=== PATIENT | female | born 1990 | race Caucasian/White ===

== ENCOUNTER → 2017-06-28 | Outpatient (CLI) | payer MEDICAID ==
[~2017-06-28] MED LIST: PRENATAL1 TA7 PO; ZOFRAN 4MG T4 MG/TAB PO; ZOFRAN8 MG PO
[2017-06-28 16:52] LABS: INFLUENZA A POSITIVE; INFLUENZA B NEGATIVE
== END ==
LOC: COL.LAB 15:57
PROVIDERS: Registered Nurse
DX: J06.9 Acute upper respiratory infection, unspecified (principal)

== ENCOUNTER → 2020-08-12 | Outpatient (CLI) | payer OTHER | LOC: COL.RAD 13:07 | DX: B94.8 Sequelae of other specified infectious and parasitic diseases (principal); R06.00 Dyspnea, unspecified; R07.89 Other chest pain | CPT/HCPCS: Q9967 ==

== ENCOUNTER 2024-01-27 17:02 | Emergency (ER) | payer OTHER ==
[~2024-01-27] VITALS: Ht 157.5 cm; Wt 93.2 kg
[2024-01-27 17:09] VITALS: TEMP 99.1
[2024-01-27] MEDS ORDERED: Ketorolac 30 MG/ML VIAL IM ONE (17:45)
[2024-01-27 18:26] VITALS: BP 124/79; PULSE 98
== END 2024-01-27 18:26 | disposition home or self-care (01) ==
LOC: COL.ER 17:02
DX: S50.01XA Contusion of right elbow, initial encounter (principal); S50.811A Abrasion of right forearm, initial encounter; W20.8XXA Other cause of strike by thrown, projected or falling object, initial encounter; Y93.89 Activity, other specified
CPT/HCPCS: J1885